=== PATIENT | female | born 1980 | race Hispanic/Latino ===

== ENCOUNTER 2024-05-14 05:33 | Day surgery (SDC) | payer OTHER ==
[2024-05-14] VITALS (10 sets, daily range): BP systolic 104–160; BP diastolic 44–79; PULSE 51–75; RESP 15–18; TEMP 96.6–97.7
[~2024-05-14] VITALS: Ht 165.1 cm; Wt 163.3 kg
[~2024-05-14 05:33] MED LIST: LOSA25TA41 PO
[2024-05-14] MEDS: 0.9%NACL 1000ML 1,000 ML IV ONE (06:30)
[2024-05-14] MEDS ORDERED: proPOFol 10 MG/ML 20ML VIAL IV ONE ×2 (07:35→07:36)
[2024-05-14] MEDS ORDERED: LIDOCAINE PF 100MG/5ML (2%) SYRINGE 5ML ONE (07:36)
[2024-05-14] MEDS ORDERED: ketaMINE 50MG/ML SYRINGE 50 MG/ML DISP.SYRIN ONE (07:52)
== END 2024-05-14 09:13 | disposition home or self-care (01) ==
LOC: ENDO 05:33 → DAH 05:33 → ENDO 09:13
PROVIDERS: ATTEND Surgery
DX: E66.01 Morbid (severe) obesity due to excess calories (principal); K29.70 Gastritis, unspecified, without bleeding; B96.81 Helicobacter pylori [H. pylori] as the cause of diseases classified elsewhere; K44.9 Diaphragmatic hernia without obstruction or gangrene; K22.89 Other specified disease of esophagus; K31.89 Other diseases of stomach and duodenum; I10 Essential (primary) hypertension; I82.591 Chronic embolism and thrombosis of other specified deep vein of right lower extremity; J45.909 Unspecified asthma, uncomplicated; Z68.44 Body mass index [BMI] 60.0-69.9, adult; Z79.899 Other long term (current) drug therapy
CPT/HCPCS: 84703; 36415; 43239; J7030; J2001; J2704 ×2; A4620; A4215; A4223; A7002; A4222; A4221; A4663; A4606; J3490